=== PATIENT | female | born 1970 | race Caucasian/White ===

== ENCOUNTER 2018-01-16 18:05 | Emergency (ER) | payer OTHER ==
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
[2018-01-16] MEDS ORDERED: KETOROLAC 30 MG/1 ML SDV IVP ONE (18:32)
[2018-01-16] MEDS ORDERED: DEXAMETHASONE 10 MG/ML VIAL IVP ONE (18:32)
[2018-01-16] MEDS ORDERED: NS 1,000 ML IV ONE (18:32)
[2018-01-16] MEDS ORDERED: LORazepam 2 MG/ML INJ IVP ONE (19:24)
--- NOTE | 2018-01-16 19:56 | CPEKG ---
Test Reason : OPEN Blood Pressure : / mmHG Vent. Rate : 065 BPM Atrial Rate : 065 BPM P-R Int : 131 ms QRS Dur : 102 ms QT Int : 448 ms P-R-T Axes : 019 030 042 degrees QTc Int : 466 ms Sinus rhythm Low voltage, precordial leads Confirmed by Buddy Easley ([id number]) on 01/16/2018 7:55:49 PM Referred By: Confirmed By:Buddy Easley
[2018-01-16 20:49] VITALS: BP 117/82
== END 2018-01-16 20:49 | disposition home or self-care (01) ==
DX: G44.309 Post-traumatic headache, unspecified, not intractable (principal); I10 Essential (primary) hypertension; E86.9 Volume depletion, unspecified
CPT/HCPCS: 96374; J1100; J1200; J1885; J2060; J2270